=== PATIENT | male | born 1980 | race Caucasian/White ===

== ENCOUNTER 2018-08-22 12:11 | Emergency (ER) | payer MEDICAID ==
[~2018-08-22] VITALS: Ht 185.4 cm; Wt 124.3 kg
[2018-08-22 12:16] VITALS: Ht 185.4 cm; Wt 124.3 kg
[2018-08-22 13:17] VITALS: BP 154/74
== END 2018-08-22 13:17 | disposition home or self-care (01) ==
LOC: ED 12:11
DX: G89.29 Other chronic pain (principal); M54.5 Low back pain; Z88.6 Allergy status to analgesic agent
CPT/HCPCS: J2270; Q0162

== ENCOUNTER 2018-09-09 10:46 | Emergency (ER) | payer MEDICAID | END 2018-09-09 10:50 | disposition left against medical advice (07) | LOC: ED 10:46 | DX: Z53.21 Procedure and treatment not carried out due to patient leaving prior to being seen by health care provider (principal) ==

== ENCOUNTER 2019-07-07 08:20 | Emergency (ER) | payer MEDICAID ==
[~2019-07-07] VITALS: Ht 182.9 cm; Wt 114.8 kg
[2019-07-07 08:30] VITALS: Ht 182.9 cm; Wt 114.8 kg
[2019-07-07 09:10] LABS: CALCIUM 8.4 mg/dL (8.5-10.1); CARBON DIOXIDE 28.2 mmol/L (21-32); CHLORIDE SERUM 100 mmol/L (98-107); CREATININE SERUM 1.3 mg/dL (0.7-1.3); GFR1 > 60 mL/min; GLUCOSE SERUM 169 mg/dL (74-106); POTASSIUM SERUM 3.8 mmol/L (3.5-5.1); SODIUM SERUM 137 mmol/L (136-145)
[2019-07-07 09:14] LABS: ALBUMIN 3.6 g/dL (3.4-5.0); ALKALINE PHOSPHATASE 65 U/L (46-116); ALT/SGPT 56 U/L (16-63); AST/SGOT 23 U/L (15-37); BILIRUBIN TOTAL 0.31 mg/dL (0.20-1.00); TOTAL PROTEIN, SERUM 7.3 g/dL (6.4-8.2)
[2019-07-07 09:19] LABS: BASOPHIL % 0.4 % (0-2); PLATELET COUNT 225 x10^3mcL (130-400); RED CELL DISTRIBUTION WIDTH 13.8 % (11.5-14.5)
[2019-07-07 10:50] VITALS: BP 116/68
[2019-07-07 10:54] LABS: AMPHETAMINE QUAL UR NONE DETECTED (See below)
== END 2019-07-07 10:56 | disposition home or self-care (01) ==
LOC: ED 08:20
PROVIDERS: Emergency Medicine
DX: T40.601A Poisoning by unspecified narcotics, accidental (unintentional), initial encounter (principal); R40.20 Unspecified coma; I10 Essential (primary) hypertension; G89.29 Other chronic pain; Y92.89 Other specified places as the place of occurrence of the external cause

== ENCOUNTER 2019-07-08 02:59 | Emergency (ER) | payer MEDICAID ==
[~2019-07-08] VITALS: Ht 182.9 cm; Wt 114.8 kg
[2019-07-08 03:07] VITALS: Ht 182.9 cm; Wt 114.8 kg
== END 2019-07-08 04:55 | disposition expired ==
LOC: ED 02:59
DX: I46.9 Cardiac arrest, cause unspecified (principal); I10 Essential (primary) hypertension; G89.29 Other chronic pain; Z88.6 Allergy status to analgesic agent